=== PATIENT | female | born 1990 | race Caucasian/White ===

== ENCOUNTER → 2024-10-16 | Outpatient (CLI) | payer OTHER ==
--- NOTE | 2024-10-17 07:16 | CA ---
Transthoracic Echo Report Name: Shelbie Polo Age: 34 Gender: F : 1990 Exam Date: 10/16/2024 12:58 Exam Location: [facility] Ht (in): 67 Wt (lb): 350 Ordering Physician: Jorden Johansen MD Attending/Referring Phys: Allen Landrum PAC Associate Financial Analyst Tamika Aldridge RDCS Procedure CPT: Indications: R60.0 LOCALIZED EDEMA Cardiac Hx: Technical Quality: Technically difficult study Contrast 1: Definity Total Dose (mL): 1 Contrast 2: Total Dose (mL): MEASUREMENTS (Male / Female) Normal Values 2D ECHO LVOT Diameter 2.0 cm LV Diastolic Volume MOD BP 137.5 cm??? 67 - 155 / 56 - 104 cm??? LV Systolic Volume MOD BP 52.3 cm??? 22 - 58 / 19 - 49 cm??? LV Ejection Fraction MOD BP 61.9 % >= 55 % LV Cardiac Index MOD BP 1981.4 cm???/min???m??? LV Diastolic Volume MOD 4C 148.8 cm??? LV Systolic Volume MOD 4C 61.5 cm??? LV Ejection Fraction MOD 4C 58.7 % LV Cardiac Index MOD 4C 2030.3 cm???/min???m??? LV Diastolic Length 4C 9.1 cm LV Systolic Length 4C 7.6 cm LV Diastolic Volume MOD 2C 124.0 cm??? LV Systolic Volume MOD 2C 44.9 cm??? LV Ejection Fraction MOD 2C 63.8 % LV Cardiac Index MOD 2C 1841.9 cm???/min???m??? LV Diastolic Length 2C 9.3 cm LV Systolic Length 2C 7.5 cm LA Volume 72.4 cm??? 18 - 58 / 22 - 52 cm??? LA Volume Index 25.5 cm???/m??? 16 - 28 cm???/m??? Ascending Aorta Diameter 3.0 cm DOPPLER AV Peak Velocity 195.9 cm/s AV Peak Gradient 15.3 mmHg AV Mean Velocity 146.0 cm/s AV Mean Gradient 9.3 mmHg AV Velocity Time Integral 41.8 cm LVOT Peak Velocity 133.2 cm/s LVOT Peak Gradient 7.1 mmHg LVOT Velocity Time Integral 27.5 cm LVOT Stroke Volume 83.6 cm??? LVOT Stroke Volume Index 32.6 ml/m??? LVOT Cardiac Index 1944.3 cm???/min???m??? AV Area Cont Eq vti 2.0 cm??? AV Area Cont Eq pk 2.1 cm??? MV Area PHT 4.2 cm??? Mitral E Point Velocity 82.4 cm/s Mitral A Point Velocity 57.1 cm/s Mitral E to A Ratio 1.4 MV Deceleration Time 180.1 ms TR Peak Velocity 271.6 cm/s TR Peak Gradient 29.5 mmHg Right Atrial Pressure 10.0 mmHg Pulmonary Artery Systolic Pressu 39.5 mmHg Right Ventricular Systolic Press 39.5 mmHg PV Peak Velocity 118.0 cm/s PV Peak Gradient 5.6 mmHg FINDINGS Left Ventricle Left ventricular ejection fraction is estimated at 55-60 %. Severely increased left ventricular diastolic volume. Mildly increased left ventricular systolic volume. Left ventricular wall thickness normal. No obvious regional wall motion abnormalities. Right Ventricle Mild right ventricular dilatation with normal function. Mild pulmonary hypertension. Right Atrium Right atrium not well visualized. Left Atrium Moderately increased left atrial volume. Mildly increased left atrial area. Mitral Valve Structurally normal mitral valve. No evidence for mitral valve prolapse. No mitral stenosis. Mild mitral regurgitation. Aortic Valve Aortic valve not well visualized. No aortic valve stenosis or regurgitation. Tricuspid Valve Structurally normal tricuspid valve. No tricuspid stenosis. mild tricuspid regurgitation. Pulmonic Valve Pulmonic valve not well visualized. No pulmonic stenosis. Trace pulmonic regurgitation. Pericardium No pericardial effusion. Aorta Normal size aortic root and proximal ascending aorta. CONCLUSIONS Technically difficult study. Definity ECHO contrast used for improved visualization of the endocardial borders (inadequate visualization of two or more contiguous segments). Normal left ventricle size and systolic function Mild mitral and tricuspid regurgitation with mild pulmonary hypertension Previewed by: Dr. True Auguste MD (Electronically Signed) Final Date: 17 October 2024 07:14
== END | disposition home or self-care (01) ==
LOC: RADECHMAIN 12:52
PROVIDERS: ATTEND Family Medicine
DX: R60.0 Localized edema (principal); I27.20 Pulmonary hypertension, unspecified; I08.1 Rheumatic disorders of both mitral and tricuspid valves
CPT/HCPCS: C8929; Q9957; 93306